=== PATIENT | female | born 1970 | race Two or more races ===

== ENCOUNTER 2019-04-08 15:07 | Outpatient (CLI) | payer OTHER ==
[~2019-04-08 15:07] MED LIST: No meds per pt.
== END 2019-04-08 23:59 | disposition home or self-care (01) ==
LOC: STAR 15:07
PROVIDERS: ATTEND Orthopaedic Surgery
DX: Z02.9 Encounter for administrative examinations, unspecified (principal)

== ENCOUNTER 2019-04-12 10:14 | Day surgery (SDC) | payer OTHER ==
[~2019-04-12] VITALS: Ht 160 cm; Wt 79.5 kg
[~2019-04-12 10:14] MED LIST changes: +LIDOCAINE 1%-EPI 1:100K, 20ML ONE; +ROPIvacaine/PF 0.5%, 30 ML ONE
[2019-04-12] MEDS ORDERED: LACTATED RINGERS 1,000 ML IV SCH (10:28)
[2019-04-12] MEDS ORDERED: MIDAZOLAM 1 MG/ML, 2ML ONE (10:30)
[2019-04-12] MEDS ORDERED: FENTANYL PF 100 MCG/2ML ONE ×2 (10:30→11:56)
[2019-04-12] MEDS ORDERED: GABAPENTIN 300 MG CAPSULE PO ONE (10:30)
[2019-04-12] MEDS ORDERED: ACETAMINOPHEN 500 MG TABLET PO ONE (10:30)
[2019-04-12] MEDS ORDERED: PROPOFOL 10 MG/ML, 20ML ONE (10:34)
[2019-04-12] MEDS ORDERED: DEXAMETHASONE 4 MG/ML, 1ML ONE (10:34)
[2019-04-12] MEDS ORDERED: ONDANSETRON 2MG/ML, 2ML ONE (10:34)
[2019-04-12] MEDS ORDERED: CEFAZOLIN 1,000 MG ONE (10:34)
[2019-04-12] MEDS ORDERED: KETOROLAC 30 MG/1 ML ONE (10:34)
[2019-04-12 10:50] VITALS: BP 108/75
[2019-04-12] MEDS ORDERED: PROMETHAZINE 25 MG/ML, 1ML IV PRN (11:30)
[2019-04-12] MEDS ORDERED: MIDAZOLAM 1 MG/ML, 2ML IV PRN (11:30)
[2019-04-12] MEDS ORDERED: hydrALAzine 20 MG/ML, 1ML IV PRN (11:30)
[2019-04-12] MEDS ORDERED: OXYcodone 5 MG/5 ML ORAL.SOL UDC PO PRN (11:30)
[2019-04-12] MEDS ORDERED: HYDROmorphone 1 MG/ML, 1ML INJ IVPush PRN (11:30)
[2019-04-12] MEDS ORDERED: MEPERIDINE/PF 25MG/ML,1ML IVPush PRN (11:30)
[2019-04-12] MEDS ORDERED: METOPROLOL 1 MG/ML, 5ML IV PRN (11:30)
[2019-04-12] MEDS ORDERED: ALBUTEROL/IPRATROPIUM 2.5MG/0.5MG, 3 ML NPPB PRN (11:30)
[2019-04-12] MEDS: FENTANYL PF 100 MCG/2ML IV PRN ×2 (11:55→12:08)
[2019-04-12] MEDS ORDERED: OXYcodone 5 MG/5 ML ORAL.SOL UDC ONE (11:57)
== END 2019-04-12 15:00 | disposition home or self-care (01) ==
LOC: OUT 10:14
PROVIDERS: ATTEND Orthopaedic Surgery
DX: S83.271A Complex tear of lateral meniscus, current injury, right knee, initial encounter (principal); M65.861 Other synovitis and tenosynovitis, right lower leg; E66.9 Obesity, unspecified; Z68.31 Body mass index [BMI] 31.0-31.9, adult; X58.XXXA Exposure to other specified factors, initial encounter; Y93.89 Activity, other specified; Y92.89 Other specified places as the place of occurrence of the external cause; Y99.8 Other external cause status
CPT/HCPCS: 29881; J0690; J1100; J1885; J2250; J2405; J2704; J2795; J3010; J3490; J7120